=== PATIENT | female | born 1995 | race Caucasian/White ===

== ENCOUNTER → 2018-01-02 12:19 | Outpatient (CLI) | payer OTHER ==
[~2018-01-02 12:19] MED LIST: INTESTINEX680 MG PO; TIGAN300 MG PO
== END | disposition home or self-care (01) ==
LOC: LAB 12:19
DX: Z01.419 Encounter for gynecological examination (general) (routine) without abnormal findings (principal); B37.3 Candidiasis of vulva and vagina; Z11.3 Encounter for screening for infections with a predominantly sexual mode of transmission; Z11.4 Encounter for screening for human immunodeficiency virus [HIV]

== ENCOUNTER 2018-02-28 13:21 | Outpatient (CLI) | payer OTHER | END 2018-02-28 13:42 | disposition home or self-care (01) | LOC: LAB 13:21 | DX: Z00.00 Encounter for general adult medical examination without abnormal findings (principal); E78.49 Other hyperlipidemia ==

== ENCOUNTER 2018-09-27 14:45 | Emergency (ER) | payer OTHER ==
[~2018-09-27] VITALS: Ht 167.6 cm; Wt 61.2 kg
== END 2018-09-27 18:01 | disposition home or self-care (01) ==
LOC: ER 14:45
DX: R19.7 Diarrhea, unspecified (principal); E86.0 Dehydration

== ENCOUNTER 2018-11-08 14:05 | Outpatient (CLI) | payer OTHER | END 2018-11-08 14:40 | disposition home or self-care (01) | LOC: LAB 14:05 | DX: Z12.11 Encounter for screening for malignant neoplasm of colon (principal) ==

== ENCOUNTER → 2019-03-27 15:13 | Outpatient (CLI) | payer OTHER | END | disposition home or self-care (01) | LOC: LAB 15:13 | DX: Z00.00 Encounter for general adult medical examination without abnormal findings (principal) ==

== ENCOUNTER → 2019-03-31 11:10 | Outpatient (CLI) | payer OTHER | END | disposition home or self-care (01) | LOC: LAB 11:10 | DX: J11.1 Influenza due to unidentified influenza virus with other respiratory manifestations (principal) ==

== ENCOUNTER → 2019-07-31 11:56 | Outpatient (CLI) | payer OTHER | END | disposition home or self-care (01) | LOC: LAB 11:56 | PROVIDERS: ATTEND Obstetrics & Gynecology | DX: R53.81 Other malaise (principal); Z11.3 Encounter for screening for infections with a predominantly sexual mode of transmission; Z11.4 Encounter for screening for human immunodeficiency virus [HIV]; Z00.00 Encounter for general adult medical examination without abnormal findings ==

== ENCOUNTER → 2019-12-20 08:49 | Outpatient (CLI) | payer OTHER | END | disposition home or self-care (01) | LOC: LAB 08:49 | PROVIDERS: ATTEND Surgery | DX: Z11.2 Encounter for screening for other bacterial diseases (principal) ==

== ENCOUNTER 2020-02-11 09:46 | Outpatient (CLI) | payer OTHER | END 2020-02-11 09:52 | disposition home or self-care (01) | LOC: LAB 09:46 | PROVIDERS: ATTEND Surgery | DX: Z20.828 Contact with and (suspected) exposure to other viral communicable diseases (principal) ==

== ENCOUNTER 2020-04-23 11:05 | Outpatient (CLI) | payer OTHER | END 2020-04-23 11:09 | disposition home or self-care (01) | LOC: LAB 11:05 | PROVIDERS: ATTEND Surgery | DX: R53.81 Other malaise (principal) ==

== ENCOUNTER 2020-04-26 09:17 | Outpatient (CLI) | payer OTHER | END 2020-04-26 09:28 | disposition home or self-care (01) | LOC: RAD 09:17 | PROVIDERS: ATTEND Surgery | DX: M41.85 Other forms of scoliosis, thoracolumbar region (principal); R05 Cough ==

== ENCOUNTER 2020-04-26 09:31 | Outpatient (CLI) | payer OTHER | END 2020-04-26 09:35 | disposition home or self-care (01) | LOC: LAB 09:31 | PROVIDERS: ATTEND Surgery | DX: Z20.828 Contact with and (suspected) exposure to other viral communicable diseases (principal); R05 Cough ==

== ENCOUNTER 2020-09-01 11:44 | Emergency (ER) | payer OTHER ==
[~2020-09-01] VITALS: Ht 165.1 cm; Wt 63.0 kg
== END 2020-09-01 16:07 | disposition home or self-care (01) ==
LOC: ER 11:44
DX: R53.1 Weakness (principal); R63.0 Anorexia

== ENCOUNTER 2020-11-02 10:09 | Emergency (ER) | payer OTHER ==
[~2020-11-02] VITALS: Ht 170.2 cm; Wt 54.0 kg
== END 2020-11-02 12:22 | disposition home or self-care (01) ==
LOC: ER 10:09
DX: B34.9 Viral infection, unspecified (principal); Z03.818 Encounter for observation for suspected exposure to other biological agents ruled out

== ENCOUNTER 2020-11-11 11:31 | Outpatient (CLI) | payer OTHER | END 2020-11-11 16:46 | disposition home or self-care (01) | LOC: LAB 11:31 | PROVIDERS: ATTEND Surgery | DX: R53.81 Other malaise (principal) ==

== ENCOUNTER 2020-11-18 16:15 | Outpatient (CLI) | payer OTHER | END 2020-11-18 16:25 | disposition home or self-care (01) | LOC: LAB 16:15 | DX: N39.0 Urinary tract infection, site not specified (principal); B95.7 Other staphylococcus as the cause of diseases classified elsewhere ==

== ENCOUNTER 2020-12-09 16:48 | Outpatient (CLI) | payer OTHER | END 2020-12-09 16:58 | disposition home or self-care (01) | LOC: LAB 16:48 | PROVIDERS: ATTEND Surgery | DX: R30.0 Dysuria (principal); N39.0 Urinary tract infection, site not specified ==

== ENCOUNTER 2021-01-26 19:10 | Emergency (ER) | payer OTHER ==
[~2021-01-26] VITALS: Ht 170.2 cm; Wt 55.3 kg
== END 2021-01-26 21:46 | disposition home or self-care (01) ==
LOC: ER 19:10
DX: R10.2 Pelvic and perineal pain (principal)

== ENCOUNTER 2021-01-29 12:02 | Day surgery (SDC) | payer OTHER ==
[2021-01-29] MEDS ORDERED: RHOGAM ULTR1500 UNIT IM (15:59)
[2021-01-29] MEDS ORDERED: NAPR500T14 PO (16:00)
== END 2021-01-29 17:10 | disposition home or self-care (01) ==
LOC: CIR.AMB 12:02
PROVIDERS: ATTEND Obstetrics & Gynecology
DX: O02.0 Blighted ovum and nonhydatidiform mole (principal); Z20.822 Contact with and (suspected) exposure to COVID-19

== ENCOUNTER 2021-02-05 08:00 | Outpatient (CLI) | payer OTHER ==
[~2021-02-05 08:00] MED LIST changes: +NAPR500T14 PO; +RHOGAM ULTR1500 UNIT IM
== END 2021-02-05 08:30 | disposition home or self-care (01) ==
LOC: PPH VACUNA 08:00
PROVIDERS: ATTEND Emergency Medicine Pediatric Emergency Medicine
DX: Z23 Encounter for immunization (principal)

== ENCOUNTER 2021-06-11 22:24 | Emergency (ER) | payer OTHER ==
[~2021-06-11] VITALS: Ht 172.7 cm; Wt 56.7 kg
== END 2021-06-11 22:58 | disposition home or self-care (01) ==
LOC: ER 22:24
DX: N39.0 Urinary tract infection, site not specified (principal)

== ENCOUNTER 2022-04-20 05:26 | Emergency (ER) | payer OTHER ==
[~2022-04-20] VITALS: Ht 170.2 cm; Wt 58.1 kg
== END 2022-04-20 10:29 | disposition home or self-care (01) ==
LOC: ER 05:26
DX: K52.89 Other specified noninfective gastroenteritis and colitis (principal); E86.0 Dehydration

== ENCOUNTER 2024-06-04 11:25 | Outpatient (CLI) | payer OTHER | END 2024-06-04 11:34 | disposition home or self-care (01) | LOC: RAD 11:25 | PROVIDERS: ATTEND Surgery | DX: S69.91XA Unspecified injury of right wrist, hand and finger(s), initial encounter (principal) ==

== ENCOUNTER 2024-10-03 09:35 | Outpatient (CLI) | payer OTHER ==
[~2024-10-03 09:35] MED LIST changes: +DICLOFENAC POTA50 MG PO
== END 2024-10-03 09:38 | disposition home or self-care (01) ==
LOC: SONOGRAMA 09:35
PROVIDERS: ATTEND Physical Medicine & Rehabilitation
DX: M25.561 Pain in right knee (principal); M67.833 Other specified disorders of tendon, right wrist